=== PATIENT | female | born 1950 | race African-American/Black ===

== ENCOUNTER 2022-09-04 11:28 | Emergency (ER) | payer OTHER, MEDICAID ==
[~2022-09-04] VITALS: Ht 165.1 cm; Wt 53.5 kg
[2022-09-04 11:31] VITALS: BP 124/92
--- NOTE | 2022-09-04 11:43 | NUR ---
71/F WALKED IN C/O B/L ARM PAIN S/P FALL 2 DAYS AGO. DENIES LOC OR TRAUMA TO HEAD. PT STATES TAKING TYLENOL WITH NO RELIEF. NO BRUISING OR DEFORMITY NOTED. NO SWELLING NOTED. PMH: HX OF SD, HTN ALLERGIES: CODEINE, IBUPROFEN
[2022-09-04] MEDS ORDERED: traMADol 50 MG TAB PO ONE (11:45)
--- NOTE | 2022-09-04 12:10 | NUR ---
PT WENT FOR XR
[2022-09-04] MEDS ORDERED: TRAM-748 PO (13:54)
[2022-09-04 14:00] VITALS: BP 131/73
--- NOTE | 2022-09-04 14:07 | NUR ---
SLING APPLIED TO R SHOULDER. + CMS.
== END 2022-09-04 14:10 | disposition home or self-care (01) ==
LOC: MED 11:28
DX: S46.912A Strain of unspecified muscle, fascia and tendon at shoulder and upper arm level, left arm, initial encounter (principal); S46.911A Strain of unspecified muscle, fascia and tendon at shoulder and upper arm level, right arm, initial encounter; Z88.5 Allergy status to narcotic agent; Z79.1 Long term (current) use of non-steroidal anti-inflammatories (NSAID); W18.30XA Fall on same level, unspecified, initial encounter; Y93.89 Activity, other specified; Y92.89 Other specified places as the place of occurrence of the external cause; Y99.8 Other external cause status
CPT/HCPCS: 73030; 99283